=== PATIENT | male | born 1965 | race Two or more races ===

== ENCOUNTER 2024-07-09 16:42 | Inpatient (IN) | payer MEDICAID, OTHER ==
[~2024-07-09] VITALS: Ht 170.2 cm; Wt 83.0 kg
[2024-07-09 18:34] VITALS: PULSE 60; RESP 12; O2SAT 98
[2024-07-09 19:45] VITALS: PULSE 63; RESP 12; O2SAT 100
[2024-07-09 20:07] LABS: Chloride 113 mmol/L (98-107); Sodium 135 mmol/L (136-145)
[2024-07-09 20:08] LABS: Anion Gap 4 (5-15); Calcium 8.6 mg/dL (8.7-10.4); Carbon Dioxide 18 mmol/L (20-30)
[2024-07-09 20:14] LABS: BUN/Creatinine Ratio 16.8 (10.0-20.0); Blood Urea Nitrogen 32 mg/dL (9-23); Glucose 175 mg/dL (74-106)
[2024-07-09 20:29] LABS: Potassium 7.6 mmol/L (3.5-5.1)
[2024-07-09] MEDS ORDERED: ALBUTEROL SULF HFA 90MCG INH 200DOSE IN STA (20:44)
[2024-07-09] MEDS: SODIUM BICARB 8.4% 50Meq/50ml SYR Vial IV ONE (21:12)
[2024-07-09] MEDS: CALCIUM GLUC 1,000mg/50ml-NS 50 ML IV ONE (21:12)
[2024-07-09] MEDS: SODIUM ZIRCONIUM CYCL 10 GM PAK PO ONE (21:13)
[2024-07-09] MEDS: InsuLIN REG 1unit/0.01ml Soln (100units/ml) SC ONE (21:16)
[2024-07-09] MEDS: DEXTROSE (50%) 50ML SYRG IV ONE (21:17)
[2024-07-09 21:23] LABS: Basophils # (auto) 0 10 ^3/uL (0-0.2); Basophils % (auto) 0.5 % (0.0-2.0); Eosinophils # (auto) 0.2 10 ^3/uL (0-0.8); Eosinophils % (auto) 2.8 % (0.0-7.0); Hematocrit 35.6 % (41.0-53.0); Hemoglobin 11.5 g/dL (13.5-17.5); Lymphocytes # (auto) 1.9 10 ^3/uL (0.4-5.4); Mean Corpuscular Hemoglobin 27.8 pg (28.0-32.0); Mean Corpuscular Hgb Conc. 32.4 g/dL (32.0-36.0); Mean Corpuscular Volume 85.9 fL (80.0-100.0); Monocytes # (auto) 0.4 10 ^3/uL (0-1.3); Monocytes % (auto) 6.7 % (0.0-12.0); Neutrophils # (auto) 3.4 10 ^3/uL (1.6-8.6); Nucleated Red Blood Cells % 0.1 %; Red Blood Cells 4.14 10^6/uL (4.5-5.90); Red Cell Distribution Width 13.6 % (11.8-14.3); White Blood Cell 5.9 10^3/uL (4.4-10.8)
[2024-07-09] MEDS: ALBUTEROL SULF 2.5 MG/0.5ML(0.5%) NEB SOLN NEB STA (22:32)
[2024-07-09] MEDS ORDERED: ACETAMINOPHEN 325 MG TAB PO PRN (23:15)
[2024-07-09] MEDS ORDERED: DEXTROSE (50%) 50ML SYRG IV PRN (23:15)
[2024-07-09] MEDS ORDERED: MORPHINE SULFATE INJ 2 MG/ml SYRG IV PRN (23:15)
[2024-07-09] MEDS ORDERED: ONDANSETRON HCL 4 MG/2 ML VIAL IV PRN (23:15)
[2024-07-09] MEDS ORDERED: NITROGLYCERIN 0.4 MG SL TAB SL PRN (23:15)
[2024-07-10] VITALS (7 sets, daily range): BP systolic 125–144; BP diastolic 55–70; PULSE 69–77; RESP 14–20; TEMP 97.8–98.3; O2SAT 97–99
[2024-07-10] MEDS: ACCU-CHEK COMFORT CURVE STRIP VI SCH (00:06)
[2024-07-10] MEDS: InsuLIN REG 1unit/0.01ml Soln (100units/ml) SC SCH (00:38)
[2024-07-10 06:12] LABS: Chloride 113 mmol/L (98-107); Sodium 137 mmol/L (136-145)
[2024-07-10 06:13] LABS: Anion Gap 5 (5-15); Carbon Dioxide 19 mmol/L (20-30)
[2024-07-10 06:14] LABS: Calcium 8.8 mg/dL (8.7-10.4)
[2024-07-10 06:19] LABS: BUN/Creatinine Ratio 16.1 (10.0-20.0); Blood Urea Nitrogen 31 mg/dL (9-23); Glucose 151 mg/dL (74-106)
[2024-07-10 06:27] LABS: Potassium 6.8 mmol/L (3.5-5.1)
[2024-07-10] MEDS: SODIUM ZIRCONIUM CYCL 10 GM PAK PO SCH (06:53)
[2024-07-10] MEDS: SODIUM BICARBONATE 650 MG TAB PO SCH (06:53)
[2024-07-10] MEDS ORDERED: LISINOPRIL 5 MG TAB PO SCH (10:00)
[2024-07-10] MEDS: FUROSEMIDE 40 MG/4 ML VIAL IV ONE (10:52)
[2024-07-10 11:48] LABS: Basophils # (auto) 0 10 ^3/uL (0-0.2); Basophils % (auto) 0.2 % (0.0-2.0); Eosinophils # (auto) 0.1 10 ^3/uL (0-0.8); Eosinophils % (auto) 0.9 % (0.0-7.0); Hemoglobin 10.7 g/dL (13.5-17.5); Lymphocytes # (auto) 1.4 10 ^3/uL (0.4-5.4); Lymphocytes % (auto) 24.7 % (10.0-50.0); Mean Corpuscular Hgb Conc. 32.5 g/dL (32.0-36.0); Monocytes # (auto) 0.4 10 ^3/uL (0-1.3); Monocytes % (auto) 6.4 % (0.0-12.0); Neutrophils # (auto) 3.8 10 ^3/uL (1.6-8.6); Neutrophils % (auto) 67.8 % (37.0-80.0); Nucleated Red Blood Cells % 0.1 %; Red Blood Cells 3.83 10^6/uL (4.5-5.90); Red Cell Distribution Width 13.8 % (11.8-14.3); White Blood Cell 5.6 10^3/uL (4.4-10.8)
[2024-07-10 12:00] LABS: INR 1.06 (0.9-1.15); Partial Thromboplastin Time 26.1 SEC (24.5-34.5); Prothrombin Time 11.2 sec (9.3-11.8)
[2024-07-10] MEDS: CALCIUM GLUC 1,000mg/50ml-NS 50 ML IV ONE (12:34)
[2024-07-10 12:50] LABS: Urine Bacteria None Seen /hpf (None Seen)
[2024-07-10 13:04] LABS: Urine Blood Negative /uL (Negative); Urine Clarity Clear (Clear); Urine Color Colorless (Yellow); Urine Protein, UAD Negative (Negative); Urine Specific Gravity 1.005 (1.001-1.035); Urine Urobilinogen Normal (Negative); Urine WBC <1 /hpf (0 - 3)
[2024-07-10 13:12] LABS: Protein, Urine < 6.0 mg/dL (0.0-11.9)
[2024-07-10 13:14] LABS: Amphetamine Screen, Urine Neg (NEGATIVE); Benzodiazephine Screen, Urine Neg (NEGATIVE); Creatinine, Urine 13.86 mg/dL (30.0-125.0); Urine Protein/Creatinine Ratio 0.43
[2024-07-10 13:15] LABS: Cannabinoid Screen, Urine Neg (NEGATIVE); Cocaine Screen, Urine Neg (NEGATIVE); Opiate Scree,Urine Neg (NEGATIVE); Phencyclidine Screen, Urine Neg (NEGATIVE)
[2024-07-10 14:44] LABS: Barbiturate Scree,Urine Neg (NEGATIVE)
[2024-07-10] MEDS: SODIUM CHLORIDE 0.9% 1,000 ML IV ONE (14:45)
[2024-07-10] MEDS: hydroCHLOROthiazide 25 MG TAB PO SCH (16:25)
[2024-07-11] VITALS (9 sets, daily range): BP systolic 106–143; BP diastolic 58–78; PULSE 59–83; RESP 16–22; TEMP 97.7–98.4; O2SAT 95–100
[2024-07-11 05:42] LABS: Basophils # (auto) 0 10 ^3/uL (0-0.2); Basophils % (auto) 0.4 % (0.0-2.0); Eosinophils # (auto) 0.2 10 ^3/uL (0-0.8); Eosinophils % (auto) 2.6 % (0.0-7.0); Hematocrit 37.1 % (41.0-53.0); Hemoglobin 12.1 g/dL (13.5-17.5); Lymphocytes # (auto) 2.6 10 ^3/uL (0.4-5.4); Mean Corpuscular Hemoglobin 27.6 pg (28.0-32.0); Mean Corpuscular Hgb Conc. 32.7 g/dL (32.0-36.0); Mean Corpuscular Volume 84.6 fL (80.0-100.0); Monocytes # (auto) 0.4 10 ^3/uL (0-1.3); Monocytes % (auto) 6.8 % (0.0-12.0); Neutrophils # (auto) 3.1 10 ^3/uL (1.6-8.6); Neutrophils % (auto) 49.2 % (37.0-80.0); Nucleated Red Blood Cells % 0.1 %; Red Blood Cells 4.39 10^6/uL (4.5-5.90); Red Cell Distribution Width 13.3 % (11.8-14.3); White Blood Cell 6.4 10^3/uL (4.4-10.8)
[2024-07-11 06:06] LABS: Alanine Aminotransferase 24 U/L (7-40); Albumin 4.5 g/dL (3.2-4.8); Alkaline Phosphatase 67 U/L (46-116); Anion Gap 7 (5-15); Aspartate Aminotransferase 17 U/L (13-40); BUN/Creatinine Ratio 15.6 (10.0-20.0); Blood Urea Nitrogen 31 mg/dL (9-23); Calcium 9.4 mg/dL (8.7-10.4); Carbon Dioxide 24 mmol/L (20-30); Chloride 106 mmol/L (98-107); Glucose 161 mg/dL (74-106); Potassium 5.1 mmol/L (3.5-5.1); Sodium 137 mmol/L (136-145)
[2024-07-11 06:07] LABS: Bilirubin, Total 0.6 mg/dL (0.2-1.0); Creatine Kinase IFCC 296 U/L (46-171); Total Protein 7.2 g/dL (5.7-8.2)
[2024-07-11] MEDS ORDERED: METF-370 PO (15:13)
[2024-07-11] MEDS ORDERED: LISI2.5T47 PO (15:13)
[2024-07-11] MEDS ORDERED: INSREG3 IV (15:13)
[2024-07-11 16:17] LABS: Chloride 106 mmol/L (98-107); Sodium 135 mmol/L (136-145)
[2024-07-11 16:18] LABS: Anion Gap 0 (5-15); Carbon Dioxide 29 mmol/L (20-30)
[2024-07-11 16:19] LABS: Calcium 9.3 mg/dL (8.7-10.4)
[2024-07-11 16:23] LABS: Blood Urea Nitrogen 29 mg/dL (9-23); Glucose 234 mg/dL (74-106)
[2024-07-11 17:13] LABS: Potassium 5.6 mmol/L (3.5-5.1)
[2024-07-11] MEDS: FUROSEMIDE 40 MG/4 ML VIAL IV ONE (17:49)
[2024-07-11] MEDS: DEXTROSE (50%) 50ML SYRG IV ONE (17:49)
[2024-07-11] MEDS: InsuLIN REG 1unit/0.01ml Soln (100units/ml) IV ONE (17:50)
[2024-07-12] VITALS (8 sets, daily range): BP systolic 126–153; BP diastolic 55–81; PULSE 68–87; RESP 17–22; TEMP 97.6–98; O2SAT 96–99
[2024-07-12 06:53] LABS: Anion Gap 3 (5-15); Carbon Dioxide 28 mmol/L (20-30); Chloride 101 mmol/L (98-107); Potassium 4.2 mmol/L (3.5-5.1); Sodium 132 mmol/L (136-145)
[2024-07-12 06:54] LABS: Calcium 9.1 mg/dL (8.7-10.4)
[2024-07-12 06:59] LABS: BUN/Creatinine Ratio 15.6 (10.0-20.0); Blood Urea Nitrogen 30 mg/dL (9-23); Glucose 141 mg/dL (74-106)
[2024-07-12] MEDS: LACTULOSE 20Gm/30ML SOLN PO ONE (12:55)
[2024-07-12] MEDS: DOCUSATE SOD 100 MG CAP PO ONE (12:55)
[2024-07-12] MEDS: SODIUM ZIRCONIUM CYCL 10 GM PAK PO ONE (15:44)
[2024-07-12] MEDS: SODIUM ZIRCONIUM CYCL 10 GM PAK PO SCH (21:13)
[2024-07-13] VITALS (7 sets, daily range): BP systolic 140–159; BP diastolic 69–80; PULSE 60–77; RESP 17–20; TEMP 97.7–98.9; O2SAT 96–98
[2024-07-13 11:40] LABS: Calcium 9.5 mg/dL (8.7-10.4); Chloride 100 mmol/L (98-107); Potassium 3.9 mmol/L (3.5-5.1); Sodium 133 mmol/L (136-145)
[2024-07-13 11:41] LABS: Anion Gap 2 (5-15); Carbon Dioxide 31 mmol/L (20-30)
[2024-07-13 11:46] LABS: BUN/Creatinine Ratio 15.1 (10.0-20.0); Blood Urea Nitrogen 30 mg/dL (9-23); Glucose 225 mg/dL (74-106)
== END 2024-07-13 15:41 | disposition home or self-care (01) | DRG 425 ==
LOC: ER 16:42 → TELE 23:17 → TELE-WESTW 07-10 09:13
PROVIDERS: ADMIT Internal Medicine; ATTEND Internal Medicine
DX: E87.5 Hyperkalemia (principal); E11.22 Type 2 diabetes mellitus with diabetic chronic kidney disease; E66.3 Overweight; E78.5 Hyperlipidemia, unspecified; I12.9 Hypertensive chronic kidney disease with stage 1 through stage 4 chronic kidney disease, or unspecified chronic kidney disease; N18.32 Chronic kidney disease, stage 3b; Z68.28 Body mass index [BMI] 28.0-28.9, adult
CPT/HCPCS: 36415; 71045; 76775; 80048; 80053; 80307; 81001; 82550; 82570; 82962; 83036; 84132; 84156; 85025; 85610; 85730; 93005; 94644; 96365; 96372; 96375; 99291; G0378; J1815